=== PATIENT | female | born 1955 | race Hispanic/Latino ===

== ENCOUNTER 2017-11-09 07:49 | Emergency (ER) | payer OTHER ==
[2017-11-09 08:10] VITALS: BP 157/78
[2017-11-09] MEDS ORDERED: MOTRIN ONE (09:17)
[2017-11-09] MEDS ORDERED: MOTRIN PO ONE (09:19)
--- NOTE | 2017-11-09 09:22 | Emergency Department Report ---
Zahida Doc - Documentation Documentation: Patient is a 61-year-old female who is presenting status post slip and fall in the shower. Patient states she just tried water R she slipped and fell she grabbed a rail with her right upper extremity but still fell onto the left wrist. Patient has some swelling and pain at the left wrist and forearm. Patient states pain is 8 out of 10 in severity and is worse with movement. Patient states the aching throbbing pain. Patient states she also hit her head has a small amount of right topically. However there was no loss of consciousness no nausea vomiting patient has good awareness aware she is. Brief physical exam patient has a very small scalp hemato resident that is minimally tender. Left wrist shows some bruising and swelling that is present. X-rays be taken of the left wrist and patient will be given Ms. for pain relief. Patient is meeting criteria for CT scan of the head at this time. Cathleen
--- NOTE | 2017-11-09 09:53 | XRay Report ---
Left wrist: There is a comminuted fracture through the distal radius and a small avulsed chip fracture from the ulnar styloid. The radius fractures are slightly tilted dorsally with a small avulsed fragment from the dorsal side. There is good radiocarpal alignment. No carpal bone injury is identified. There is generalized swelling around the wrist. Impressions: Distal radius and ulnar fractures as detailed above.
--- NOTE | 2017-11-09 09:54 | Emergency Department Report ---
ED Extremity Problem HPI - General Chief complaint: Fall Stated complaint: WRIST PAIN Time Seen by Provider: 11/09/17 09:17 Source: patient Mode of arrival: Ambulatory Limitations: No Limitations - History of Present Illness Initial comments: Patient is a 61-year-old female who is presenting status post slip and fall in the shower. Patient states she just tried water R she slipped and fell she grabbed a rail with her right upper extremity but still fell onto the left wrist. Patient has some swelling and pain at the left wrist and forearm. Patient states pain is 8 out of 10 in severity and is worse with movement. Patient states the aching throbbing pain. Patient states she also hit her head has a small amount of right topically. However there was no loss of consciousness no nausea vomiting patient has good awareness aware she is. Severity scale (0 -10): 10 - Related Data Previous Rx's Medication Instructions Recorded Last Taken Type HYDROcodone/APAP 5-325 [[place] 1 each PO Q6HR PRN #15 tablet 11/09/17 Unknown Rx 5/325] Ibuprofen [Motrin] 800 mg PO Q8HR PRN #20 tablet 11/09/17 Unknown Rx Ondansetron [Zofran Odt] 4 mg PO Q8HR PRN #10 tab.rapdis 11/09/17 Unknown Rx Allergies Allergy/AdvReac Type Severity Reaction Status Date / Time No Known Allergies Allergy Unverified 11/09/17 08:10 ED Review of Systems ROS: Stated complaint: WRIST PAIN Other details as noted in HPI Comment: All other systems reviewed and negative ED Past Medical Hx - Past Medical History Previous Medical History?: Yes Hx Asthma: Yes Additional medical history: high cholesterol - Surgical History Past Surgical History?: No - Social History Smoking Status: Never Smoker Substance Use Type: None - Medications Home Medications: Home Medications Medication Instructions Recorded Confirmed Last Taken Type HYDROcodone/APAP 5-325 [[place] 1 each PO Q6HR PRN #15 tablet 11/09/17 Unknown Rx 5/325] Ibuprofen [Motrin] 800 mg PO Q8HR PRN #20 tablet 11/09/17 Unknown Rx Ondansetron [Zofran Odt] 4 mg PO Q8HR PRN #10 tab.rapdis 11/09/17 Unknown Rx ED Physical Exam - General Limitations: No Limitations General appearance: alert, in no apparent distress - Head Head exam: Present: atraumatic, normocephalic - Eye Eye exam: Present: normal appearance - ENT ENT exam: Present: mucous membranes moist - Neck Neck exam: Present: normal inspection - Respiratory Respiratory exam: Present: normal lung sounds bilaterally. Absent: respiratory distress, wheezes, rales, rhonchi - Cardiovascular Cardiovascular Exam: Present: regular rate, normal rhythm. Absent: systolic murmur, diastolic murmur, rubs, gallop - GI/Abdominal GI/Abdominal exam: Present: soft, normal bowel sounds. Absent: distended, tenderness, guarding - Extremities Exam Extremities exam: Present: tenderness, joint swelling (left wrist swelling and tenderness.). Absent: normal inspection - Back Exam Back exam: Present: normal inspection - Neurological Exam Neurological exam: Present: alert, oriented X3 - Psychiatric Psychiatric exam: Present: normal affect, normal mood - Skin Skin exam: Present: warm, dry, intact, normal color. Absent: rash ED Course Vital Signs 11/09/17 08:07 Temperature 98.6 F Pulse Rate 97 H Respiratory 16 Rate Blood Pressure 157/78 O2 Sat by Pulse 97 Oximetry ED Medical Decision Making - Radiology Data She has a crush injury to the distal left radius on x-ray - Medical Decision Making Patient placed in a sugar tong splint for her fracture patient will be started on Motrin and Vicodin for pain control would be referred to Dr. Motta with orthopedic surgery. This constitutes fracture care. Critical care attestation.: If time is entered above; I have spent that time in minutes in the direct care of this critically ill patient, excluding procedure time. ED Disposition Clinical Impression: Distal radial fracture Qualifiers: Encounter type: initial encounter Fracture type: closed Fracture morphology: unspecified fracture morphology Laterality: left Qualified Code(s): S52.502A - Unspecified fracture of the lower end of left radius, initial encounter for closed fracture Disposition: - TO HOME OR SELFCARE Is pt being admited?: No Does the pt Need Aspirin: No Condition: Stable Instructions: Wrist Fracture in Adults (ED) Referrals: RENNY MOTTA MD [Staff Physician] - 3-5 Days
== END 2017-11-09 11:09 | disposition home or self-care (01) ==
LOC: ED 07:49
DX: S52.502A Unspecified fracture of the lower end of left radius, initial encounter for closed fracture (principal); J45.909 Unspecified asthma, uncomplicated; E78.00 Pure hypercholesterolemia, unspecified; W18.2XXA Fall in (into) shower or empty bathtub, initial encounter; Y93.89 Activity, other specified; Y92.89 Other specified places as the place of occurrence of the external cause; Y99.8 Other external cause status
CPT/HCPCS: 99283

== ENCOUNTER 2017-11-17 11:16 | Day surgery (SDC) | payer OTHER ==
[2017-11-17] MEDS ORDERED: NACL BACTERIOSTATIC INFILTRATI ONE (12:26)
[2017-11-17] MEDS ORDERED: TYLENOL PO ONE (12:29)
--- NOTE | 2017-11-17 12:31 | Anesthesia Day of Surgery ---
Anesthesia Day of Surgery - Day of Surgery Patient Examined: Yes Patient H&P Reviewed: Yes Patient is NPO: Yes Beta Blockers: No (N/A)
--- NOTE | 2017-11-17 12:31 | Anesthesia Consultation ---
Anesthesia Consult and Med Hx Date of service: 11/17/17 - Airway Anesthetic Teeth Evaluation: Good ROM Head & Neck: Inadequate (Mild decreased neck extension) Mental/Hyoid Distance: Adequate Mallampati Class: Class II Intubation Access Assessment: Probably Good - Pulmonary Exam CTA: Yes - Cardiac Exam Cardiac Exam: No Murmur - Pre-Operative Health Status ASA Pre-Surgery Classification: ASA3 Proposed Anesthetic Plan: General, MAC Nerve Block: supraclavicular - Pulmonary Hx Smoking: Yes (STOPPED 1994- 1PPD X 10 YRS) Hx Asthma: Yes (DAILY INHALERS) SOB: No Home Oxygen Therapy: No Hx Sleep Apnea: No (FRANTZ PRE SCREEN LOW RISK) - Cardiovascular System Hx Hypertension: No Hx Heart Attack/AMI: No Hx Percutaneous Transluminal Coronary Angioplasty (PTCA): No Hx Pacemaker: No - Central Nervous System Hx Neuromuscular Disorder: No Hx Seizures: No CVA: No Hx Back Pain: Yes Hx Psychiatric Problems: Yes (Anxiety) - Gastrointestinal Hx Ulcer: No Hx Gastroesophageal Reflux Disease: Yes (well controlled) - Endocrine Hx Renal Disease: No Hx Liver Disease: No Hx Insulin Dependent Diabetes: No Hx Non-Insulin Dependent Diabetes: No Hx Thyroid Disease: No - Hematic Hx Anemia: Yes (prior hx) - Other Systems Hx Cancer: No - Additional Comments Anesthesia Medical History Comments: Hx PONV. Used atrovent and breo today as scheduled. Asymptomatic. Consented for general vs MAC + regional pending discussion with surgeon.
[2017-11-17] MEDS ORDERED: NEOSPORIN GU IR ONE (12:42)
[2017-11-17] MEDS ORDERED: MARCAINE 0.25% INFILTRATI ONE (12:42)
[2017-11-17] MEDS ORDERED: LACTATED RINGERS 1,000 ML IV SCH (13:00)
[2017-11-17] MEDS ORDERED: VERSED IV NR ×2 (13:00→13:20)
[2017-11-17] MEDS ORDERED: MARCAINE 0.5% INFILTRATI NR (13:00)
[2017-11-17] MEDS ORDERED: TRANSDERM-SCOP TD NR (13:00)
[2017-11-17] MEDS ORDERED: DIPRIVAN 10 MG/ML IV ONE (13:05)
[2017-11-17] MEDS ORDERED: XYLOCAINE MPF 2% ONE (13:05)
[2017-11-17] MEDS ORDERED: SUBLIMAZE ONE ×2 (13:05→15:37)
[2017-11-17] MEDS ORDERED: ADRENALIN ONE (13:17)
[2017-11-17] MEDS ORDERED: XYLOCAINE 1% 20 mL ONE (13:21)
[2017-11-17] MEDS ORDERED: ANCEF/STERILE WATER 2 GM/20 ML IV NR (14:00)
[2017-11-17] MEDS ORDERED: ePHEDrine SULFATE ONE (14:33)
[2017-11-17] MEDS ORDERED: NACL 0.9% 1000 ML IR ONE (14:49)
[2017-11-17] MEDS ORDERED: ZOFRAN ONE (15:26)
[2017-11-17] MEDS ORDERED: ROBINUL ONE (15:30)
--- NOTE | 2017-11-17 15:40 | XRay Report ---
Left wrist 2 fluoroscopic images: History: Left distal radius fracture. Findings: There is internal fixation noted of distal radius fracture with metallic plate and screws. Stable hardware with satisfactory alignment of fracture fragments. Impression: Findings as detailed above.
[2017-11-17] MEDS ORDERED: PERCOCET 5/325 PO PRN (16:07)
[2017-11-17 16:43] VITALS: BP 144/78
--- NOTE | 2017-11-17 16:58 | Procedure Note ---
Date of procedure: 11/17/17 Pre-op diagnosis: displaced left distal radius fracture Post-op diagnosis: same Procedure: Open reduction internal fixation left distal radius Procedure The patient was brought to the OR after being given a scalene nerve block for postop pain management she was placed in the OR table in the supine position. Next the left upper extremity was prepped and draped in the usual sterile manner. A timeout procedure was done to identify the patient and the correct operative site. The arm was then exsanguinated followed by inflation of the pneumatic tourniquet to 250 mmHg. A volar incision was made along the distal radius in line with the flexor carpi radialis tendon was taken down sharply through skin and subcutaneous the tendon was identified and was retracted in a lateral direction C quadratus tendon was incised and teased off of the periosteum exposing the fracture site, following close reduction and reapproximation of fracture fragments a small locked plate was applied and stabilized with 2 K wires C-arm fluoroscopy was used to evaluate the reduction and placement of our plate following this is screws of various lengths were applied to both the distal fragment and proximal fragment care was taken not to penetrate the articular surfaces as well as the dorsal surface of the distal radius. The wound was then copiously irrigated and was closed in a standard routine fashion. Dressings were applied the patient tolerated the procedure and complications she was sent to postanesthesia recovery in stable condition Anesthesia: KARAN ROACH, regional Surgeon: RENNY HONG Estimated blood loss: minimal Pathology: none Condition: stable Disposition: PACU
--- NOTE | 2017-11-18 06:35 | Post Anesthesia Evaluation ---
- Post Anesthesia Evaluation Patient Participated: Yes Airway Patent: Yes Stable Respiratory Function: Yes Nausea/Vomiting: No Temp > 96.8F: No Pain Manageable: Yes Adequeate Hydration: Yes Anesthesia Complications: No
== END 2017-11-17 17:13 | disposition home or self-care (01) ==
LOC: OR 11:16
PROVIDERS: ATTEND Orthopaedic Surgery
DX: S52.502A Unspecified fracture of the lower end of left radius, initial encounter for closed fracture (principal); J45.909 Unspecified asthma, uncomplicated; G47.30 Sleep apnea, unspecified; K21.9 Gastro-esophageal reflux disease without esophagitis; E78.00 Pure hypercholesterolemia, unspecified; F41.9 Anxiety disorder, unspecified; Z86.2 Personal history of diseases of the blood and blood-forming organs and certain disorders involving the immune mechanism; Z87.891 Personal history of nicotine dependence; Z88.8 Allergy status to other drugs, medicaments and biological substances; Z79.899 Other long term (current) drug therapy; X58.XXXA Exposure to other specified factors, initial encounter; Y93.89 Activity, other specified; Y92.89 Other specified places as the place of occurrence of the external cause; Y99.8 Other external cause status
CPT/HCPCS: 25609; 64450; 73100; C1713; J0171; J0690; J2250; J2405; J2704; J3010; J7030; J7120

== ENCOUNTER 2018-01-18 09:51 | Outpatient (CLI) | payer OTHER ==
--- NOTE | 2018-01-18 11:29 | XRay Report ---
LEFT HAND, 3 views: History: Pain in left hand. Compared to 11/09/17. There is borderline osteopenia. There is been previous internal fixation of a distal radial fracture. No evidence for acute fracture, ligamentous injury or malalignment. Carpal bones are in appropriate relationship. Mild degenerative changes are noted at the left wrist. IMPRESSION: No acute process. Surgical changes of the left wrist. Borderline osteopenia.
== END 2018-01-18 09:52 | disposition home or self-care (01) ==
LOC: XRAY 09:51
PROVIDERS: ATTEND Orthopaedic Surgery
DX: M19.032 Primary osteoarthritis, left wrist (principal); E78.00 Pure hypercholesterolemia, unspecified; J45.909 Unspecified asthma, uncomplicated; K21.9 Gastro-esophageal reflux disease without esophagitis; Z87.891 Personal history of nicotine dependence